=== PATIENT | male | born 2000 | race African-American/Black ===

== ENCOUNTER 2021-12-26 12:44 | Emergency (ER) | payer OTHER ==
[~2021-12-26] VITALS: Ht 167.6 cm; Wt 55.0 kg
[2021-12-26 12:51] VITALS: BP 137/84
[2021-12-26] MEDS ORDERED: ACETAMINOPHEN 325MG TABLET PO ONE (16:15)
[2021-12-26] MEDS ORDERED: TETANUS, DIPHTHERIA, PERTUSSIS VAC/PF 0.5ML (>10YR OLD) IM ONE (16:15)
[2021-12-26] MEDS ORDERED: TOPUD MT (17:51)
== END 2021-12-26 18:07 | disposition home or self-care (01) ==
LOC: ER 12:44
DX: S00.33XA Contusion of nose, initial encounter (principal); Y08.89XA Assault by other specified means, initial encounter; Y93.89 Activity, other specified; Y92.89 Other specified places as the place of occurrence of the external cause; Y99.8 Other external cause status; Z87.19 Personal history of other diseases of the digestive system; Z90.49 Acquired absence of other specified parts of digestive tract
CPT/HCPCS: 70150; 70160; 90471; 90715; 99284